=== PATIENT | male | born 1955 | race Two or more races ===

== ENCOUNTER 2020-09-27 13:40 | Outpatient (CLI) | payer OTHER | END 2020-09-27 13:48 | disposition home or self-care (01) | LOC: RAD 13:40 | PROVIDERS: ATTEND Specialist | DX: J45.998 Other asthma (principal) ==

== ENCOUNTER 2020-09-29 06:42 | Outpatient (CLI) | payer OTHER | END 2020-09-29 06:43 | disposition home or self-care (01) | LOC: MAMO-SONO 06:42 | PROVIDERS: ATTEND Specialist | DX: K76.0 Fatty (change of) liver, not elsewhere classified (principal) ==

== ENCOUNTER → 2020-10-26 09:37 | Outpatient (CLI) | payer OTHER | END | disposition home or self-care (01) | LOC: NUCLEAR 09:37 | PROVIDERS: ATTEND Specialist | DX: K75.81 Nonalcoholic steatohepatitis (NASH) (principal) | CPT/HCPCS: 78215; A9541 ==

== ENCOUNTER → 2021-03-28 12:58 | Outpatient (CLI) | payer OTHER | END | disposition home or self-care (01) | LOC: LAB 12:58 | PROVIDERS: ATTEND Specialist | DX: R89.8 Other abnormal findings in specimens from other organs, systems and tissues (principal) ==

== ENCOUNTER 2022-04-24 10:16 | Outpatient (CLI) | payer OTHER | END 2022-04-24 13:23 | disposition home or self-care (01) | LOC: EKG 10:16 | PROVIDERS: ATTEND Specialist | DX: J45.998 Other asthma (principal); I10 Essential (primary) hypertension ==

== ENCOUNTER 2022-05-18 05:53 | Inpatient (IN) | payer OTHER ==
[~2022-05-18 05:53] MED LIST: FENOFIBRATE50 MG PO; METFORMIN HCL500 M3 PO; SIMVASTATIN5 MG PO
== END 2022-05-19 12:57 | disposition home or self-care (01) | DRG 714 ==
LOC: CIR.AMB 05:53 → SURH 13:38 → O/R 13:38 → SURH 13:49
PROVIDERS: ADMIT Urology; ATTEND Urology
PROC: 0TFB8ZZ Fragmentation in Bladder, Via Natural or Artificial Opening Endoscopic (ICD-10-PCS; 2022-05-18)
PROC: 0VT08ZZ Resection of Prostate, Via Natural or Artificial Opening Endoscopic (ICD-10-PCS; principal; 2022-05-18 07:00)
DX: N40.1 Benign prostatic hyperplasia with lower urinary tract symptoms (principal); R33.8 Other retention of urine; N21.0 Calculus in bladder; Z20.822 Contact with and (suspected) exposure to COVID-19